=== PATIENT | male | born 1980 | race Caucasian/White ===

== ENCOUNTER 2020-05-18 05:45 | Emergency (ER) | payer OTHER ==
[~2020-05-18] VITALS: Ht 175.3 cm; Wt 123.8 kg
[2020-05-18 05:54] VITALS: Ht 175.3 cm; Wt 123.8 kg
[2020-05-18 06:30] LABS: BASOPHIL % 1.3 % (0.2-1.5); PLATELET COUNT 228 x10^3mcL (152-348)
[2020-05-18 06:32] LABS: CARBON DIOXIDE 27.1 mmol/L (21-32); CHLORIDE SERUM 104 mmol/L (98-107); GFR1 > 60 mL/min; GLUCOSE SERUM 124 mg/dL (74-106); POTASSIUM SERUM 3.5 mmol/L (3.5-5.1); SODIUM SERUM 140 mmol/L (136-145)
[2020-05-18 06:37] LABS: ALKALINE PHOSPHATASE 103 U/L (46-116); ALT/SGPT 59 U/L (16-63); AST/SGOT 21 U/L (15-37); BILIRUBIN TOTAL 0.5 mg/dL (0.20-1.00); TOTAL PROTEIN, SERUM 7.2 g/dL (6.4-8.2)
[2020-05-18] MEDS ORDERED: FLOMAX0.4 MG PO (07:43)
[2020-05-18] MEDS ORDERED: IBU600 M2 PO (07:43)
[2020-05-18 08:23] VITALS: BP 151/89
== END 2020-05-18 08:24 | disposition home or self-care (01) ==
LOC: ED 05:45
PROVIDERS: Emergency Medicine
DX: N20.0 Calculus of kidney (principal)
CPT/HCPCS: J1885